=== PATIENT | female | born 1950 | race Hispanic/Latino ===

== ENCOUNTER → 2018-12-29 | Outpatient (CLI) | payer MEDICARE ==
[~2018-12-29] MED LIST: REGADENOSON 0.4 MG/5 ML PF SYG IVP SCH
== END | disposition home or self-care (01) ==
LOC: SHCH 08:00
PROVIDERS: ATTEND Internal Medicine Cardiovascular Disease
DX: R07.9 Chest pain, unspecified (principal); R06.02 Shortness of breath; R10.9 Unspecified abdominal pain
CPT/HCPCS: 78452; 93017; 96374; A9500 ×2

== ENCOUNTER → 2019-08-12 | Outpatient (CLI) | payer MEDICARE ==
[~2019-08-12] MED LIST changes: +GADODIAMIDE 10 MMOL/20 ML VIAL IV ONE; -REGADENOSON 0.4 MG/5 ML PF SYG IVP SCH
== END | disposition home or self-care (01) ==
LOC: RAH 13:58
PROVIDERS: ATTEND Family Medicine
DX: R51 Headache (principal); R55 Syncope and collapse
CPT/HCPCS: 70553; A9579

== ENCOUNTER → 2019-09-07 | Outpatient (CLI) | payer MEDICARE | END | disposition home or self-care (01) | LOC: RAH 13:44 | PROVIDERS: ATTEND Family Medicine | DX: E23.6 Other disorders of pituitary gland (principal); G31.89 Other specified degenerative diseases of nervous system; R90.82 White matter disease, unspecified; J34.89 Other specified disorders of nose and nasal sinuses | CPT/HCPCS: 70553; A9579 ==

== ENCOUNTER 2020-05-24 13:49 | Observation (INO) | payer MEDICARE ==
[~2020-05-24] VITALS: Ht 162.6 cm; Wt 82.8 kg
[2020-05-24 14:40] LABS: BASOPHILS % (AUTO) 0.4 % (0.0-5.0); EOSINOPHILS % (AUTO) 1.8 % (0.0-8.0); HEMATOCRIT 31.8 % (36-48); LYMPHOCYTES % (AUTO) 32.5 % (21.0-51.0); MEAN CORPUSCULAR HEMOGLOBIN 27.8 pg (27.0-33.0); MEAN CORPUSCULAR HGB CONC 32.7 g/dL (32.0-36.0); MONOCYTES % (AUTO) 8.3 % (3.0-13.0); NEUTROPHILS % (AUTO) 56.3 % (40.0-77.0); PLATELET COUNT (AUTO) 212 K/uL (130-400); RED BLOOD CELL COUNT(AUTO) 3.74 MIL/uL (4.00-5.50); RED CELL DISTRIBUTION WIDTH 14.6 % (11.0-15.5); WHITE BLOOD COUNT (AUTO) 8.6 K/uL (4.8-10.8)
[2020-05-24 14:52] LABS: CREATININE 1.9 mg/dL (0.5-1.5); POTASSIUM 4.9 mmol/L (3.5-5.1)
[2020-05-24 14:56] LABS: INR 1.01 (0.85-1.15); PARTIAL THROMBOPLASTIN TIME 27.3 SEC (26.3-35.5); PROTHROMBIN TIME 10.9 SEC (9.6-11.6)
[2020-05-24 14:57] LABS: ALBUMIN 3.4 g/dL (3.5-5.0); BILIRUBIN,TOTAL 0.4 mg/dL (0.2-1.0); TOTAL PROTEIN, SERUM 7.7 g/dL (6.0-8.3)
[2020-05-24] MEDS ORDERED: SODIUM CHLORIDE 0.9% 1000ML 1,000 ML IV ONE (15:04)
[2020-05-24] MEDS ORDERED: BUPIVACAINE/PF 0.25% 30ML VIAL IJ ONE (15:40)
[2020-05-24] MEDS ORDERED: CEFAZOLIN SODIUM 1 GM VIAL ONE (15:40)
[2020-05-24] MEDS ORDERED: MIDAZOLAM HCL 1 MG/ML 2ML VIAL ONE ×2 (15:41→16:48)
[2020-05-24] MEDS ORDERED: LIDOCAINE HCL 1% MDV 50ML VIAL ONE (15:41)
[2020-05-24] MEDS ORDERED: MEPERIDINE-PF 25 MG/ML SYG ONE ×2 (15:41→16:48)
[2020-05-24] MEDS ORDERED: OCTYL 2-CYANOACRYLATE 1 EACH TP ONE ×2 (17:08→17:25)
[2020-05-24] MEDS ORDERED: ACETAMINOPHEN-CODEINE 300/30MG TAB PO PRN ×2 (17:45)
[2020-05-24] MEDS ORDERED: NITROGLYCERIN 0.4 MG SL TAB SL PRN (17:45)
[2020-05-24] MEDS ORDERED: TEMAZEPAM 30 MG CAP PO PRN (17:45)
[2020-05-24] MEDS ORDERED: ONDANSETRON HCL 4 MG/2 ML VIAL IV PRN (17:45)
[2020-05-24] MEDS ORDERED: SODIUM CHLORIDE 0.9% 1000ML 1,000 ML IV SCH (17:45)
[2020-05-24 18:30] VITALS: BP 142/55
[2020-05-24 19:00] VITALS: BP 146/55
[2020-05-24 19:52] VITALS: BP 136/64
[2020-05-24] MEDS: METOPROLOL SUCCINATE 50 MG TAB.SR.24H PO SCH (20:21)
[2020-05-24] MEDS: LOSARTAN 50 MG TABLET PO SCH (20:21)
[2020-05-24] MEDS: LINAGLIPTIN 5 MG TABLET PO SCH (20:21)
[2020-05-24] MEDS: METFORMIN HCL 500 MG TAB.SR.24H PO SCH (20:29)
[2020-05-25] VITALS: BP 154/61
[2020-05-25 03:52] VITALS: BP 154/64
[2020-05-25 04:48] LABS: HEMATOCRIT 28.7 % (36-48); MEAN CORPUSCULAR HEMOGLOBIN 27.1 pg (27.0-33.0); MEAN CORPUSCULAR HGB CONC 32.1 g/dL (32.0-36.0); MEAN CORPUSCULAR VOLUME 84.7 fL (79-99); RED BLOOD CELL COUNT(AUTO) 3.39 MIL/uL (4.00-5.50); RED CELL DISTRIBUTION WIDTH 14.6 % (11.0-15.5); WHITE BLOOD COUNT (AUTO) 8.8 K/uL (4.8-10.8)
[2020-05-25 05:25] LABS: BILIRUBIN,TOTAL 0.3 mg/dL (0.2-1.0); CREATININE 1.9 mg/dL (0.5-1.5); TOTAL PROTEIN, SERUM 6.8 g/dL (6.0-8.3)
[2020-05-25] MEDS ORDERED: CEFAZOLIN SODIUM 1 GM VIAL IVP ONE (06:00)
[2020-05-25 08:00] VITALS: BP 175/67
--- NOTE | 2020-05-25 08:11 | NUR ---
MEDICATED FOR C/O OF NAUSEA, HAD A SMALL EMESIS, CLEAR FLUID
--- NOTE | 2020-05-25 08:30 | NUR ---
JUAN DAVID CHEN IN TO SEE. CAN BE DISCHARGED TODAY. INST. ON ARM ACTIVITY GIVEN.
[2020-05-25] MEDS ORDERED: FERR324T4 PO (08:55)
[2020-05-25] MEDS ORDERED: ASPI-1005 PO (08:55)
[2020-05-25] MEDS ORDERED: LINA5TAB PO (08:55)
[2020-05-25] MEDS ORDERED: Nitroglycerin 0.4MG Sl Tab SL (08:55)
[2020-05-25] MEDS ORDERED: METF500T3 PO (08:55)
[2020-05-25] MEDS ORDERED: LOSA50TA2 PO (08:55)
[2020-05-25] MEDS ORDERED: ATOR20TA65 PO (08:55)
[2020-05-25] MEDS ORDERED: FURO20TA6 PO (08:55)
[2020-05-25] MEDS ORDERED: GABA100C PO (08:55)
[2020-05-25] MEDS: METOPROLOL SUCCINATE 50 MG TAB.SR.24H PO SCH ×2 (09:00→14:05)
[2020-05-25] MEDS ORDERED: FERROUS SULFATE 325 MG TABLET.DR PO SCH (09:00)
[2020-05-25] MEDS ORDERED: ASPIRIN 81MG TAB.CHEW PO SCH (09:00)
[2020-05-25] MEDS ORDERED: GABAPENTIN 100 MG CAPSULE PO SCH (09:00)
[2020-05-25] MEDS ORDERED: FUROSEMIDE 20 MG TABLET PO SCH (09:00)
[2020-05-25] MEDS ORDERED: AMLODIPINE BESYLATE 5 MG TAB PO SCH (09:00)
[2020-05-25] MEDS ORDERED: ATORVASTATIN CALCIUM 20 MG TABLET PO SCH (09:00)
[2020-05-25] MEDS: METFORMIN HCL 500 MG TAB.SR.24H PO SCH (09:05)
[2020-05-25] MEDS: LINAGLIPTIN 5 MG TABLET PO SCH (09:06)
[2020-05-25] MEDS: LOSARTAN 50 MG TABLET PO SCH (09:06)
--- NOTE | 2020-05-25 09:09 | NUR ---
REFUSED TOPROL, STATES HAS BEEN STOPPED BY HER HASN'T TAKEN IT FOR A WHILE.
[2020-05-25 12:00] VITALS: BP 184/68
--- NOTE | 2020-05-25 13:54 | NUR ---
PAGED JUAN DAVID RE: HIGH BP. STATES TO GIVE A CLONIDINE 0.1 PO NOW AND TO RESTART TOPROL.
[2020-05-25] MEDS ORDERED: CLONIDINE HCL 0.1 MG TABLET PO SCH (14:00)
--- NOTE | 2020-05-25 14:43 | NUR ---
PREPARED FOR DISCHARGE, WILL CHECK BP AGAIN IN APPROX. 30MINUTES . CLONIDINE 0.1MG PO GIVEN NOW.
--- NOTE | 2020-05-25 15:48 | NUR ---
[id number] PATIENT SIGNED SALDANA LETTER, I FAXED SALDANA LETTER TO [phone] AND PLACED IN CHART UNDER CONSENT TAB.
[2020-05-25 16:00] VITALS: BP 184/68
[2020-05-25 16:13] VITALS: BP 184/68
--- NOTE | 2020-05-25 18:00 | NUR ---
DISCHARGED USING TEACH BACK,VERBALIZES UNDERSTANDING OF ALL INST. GIVEN. HAS HOME HEALTH AND THEY MONITOR HER BP CLOSELY. WILL FOLLOW UP WITH APPT. SCHEDULED . INST. TO RETURN TO ER IF ANY PROBLEMS DEVELOP. DC INST. ALSO GIVEN TO DAUGHTER VIA PHONE, PER PT. STATES DAUGHTER IS A NURSE AND HELPS HER.
== END 2020-05-25 18:30 | disposition home or self-care (01) ==
LOC: EDH 13:49 → EDHIP 14:26 → DAHIP 18:34
PROVIDERS: ADMIT Internal Medicine; ATTEND Internal Medicine
DX: I49.5 Sick sinus syndrome (principal); I12.9 Hypertensive chronic kidney disease with stage 1 through stage 4 chronic kidney disease, or unspecified chronic kidney disease; E11.22 Type 2 diabetes mellitus with diabetic chronic kidney disease; N18.9 Chronic kidney disease, unspecified; K21.9 Gastro-esophageal reflux disease without esophagitis; E78.5 Hyperlipidemia, unspecified; I25.10 Atherosclerotic heart disease of native coronary artery without angina pectoris; Z86.19 Personal history of other infectious and parasitic diseases; Z95.0 Presence of cardiac pacemaker
CPT/HCPCS: 33208; 36415 ×2; 71046; 80053 ×2; 82948; 85025; 85027; 85610; 85730; 93005; 96374; 96375; 99285; C1785; C1894; C1898 ×2; G0378 ×11; J0690 ×2; J2175 ×2; J2250 ×2; J2405; J3490 ×2; J7030; 99156; 99157

== ENCOUNTER → 2020-09-27 | Outpatient (CLI) | payer MEDICARE ==
[~2020-09-27] MED LIST changes: +ASPI-1005 PO; +ATOR20TA65 PO; +FERR324T4 PO; +FURO20TA6 PO; +GABA100C PO; -GADODIAMIDE 10 MMOL/20 ML VIAL IV ONE; +LINA5TAB PO; +LOSA50TA2 PO; +METF500T3 PO; +Nitroglycerin 0.4MG Sl Tab SL; +REGADENOSON 0.4 MG/5 ML PF SYG IVP SCH
== END | disposition home or self-care (01) ==
LOC: SHCH 08:13
PROVIDERS: ATTEND Internal Medicine Cardiovascular Disease
DX: I25.89 Other forms of chronic ischemic heart disease (principal); I10 Essential (primary) hypertension
CPT/HCPCS: 78452; 93017; 96374; A9500 ×2; J2785

== ENCOUNTER 2021-10-25 08:50 | Day surgery (SDC) | payer MEDICARE ==
[2021-10-23 16:31] LABS: BASOPHILS % (AUTO) 0.3 % (0.0-5.0); EOSINOPHILS % (AUTO) 1.9 % (0.0-8.0); HEMATOCRIT 34.7 % (36-48); LYMPHOCYTES % (AUTO) 29.7 % (21.0-51.0); MEAN CORPUSCULAR HEMOGLOBIN 27.9 pg (27.0-33.0); MEAN CORPUSCULAR HGB CONC 32.9 g/dL (32.0-36.0); MEAN CORPUSCULAR VOLUME 84.8 fL (79-99); MONOCYTES % (AUTO) 6.6 % (3.0-13.0); PLATELET COUNT (AUTO) 180 K/uL (130-400); RED BLOOD CELL COUNT(AUTO) 4.09 MIL/uL (4.00-5.50); RED CELL DISTRIBUTION WIDTH 13.9 % (11.0-15.5); WHITE BLOOD COUNT (AUTO) 7.7 K/uL (4.8-10.8)
[2021-10-23 16:39] LABS: CREATININE 2.9 mg/dL (0.5-1.5); POTASSIUM 4.8 mmol/L (3.5-5.1)
[2021-10-23 16:41] LABS: INR 1.07 (0.85-1.15); PROTHROMBIN TIME 11.6 SEC (9.6-11.6)
[2021-10-23 16:42] LABS: PARTIAL THROMBOPLASTIN TIME 29.9 SEC (26.3-35.5)
[2021-10-23 16:58] LABS: B-TYPE NATRIURETIC PEPTIDE 51 pg/mL (0-100)
[2021-10-24 14:57] VITALS: BP 149/74
[~2021-10-25] VITALS: Ht 149.9 cm; Wt 79.3 kg
[2021-10-25] VITALS (10 sets, daily range): BP systolic 119–146; BP diastolic 59–75
[~2021-10-25 08:50] MED LIST changes: +0.9%NACL 1000ML 1,000 ML IV SCH; +ESOM40CA54 PO; -FERR324T4 PO; -FURO20TA6 PO; +FURO40TA5 PO; +GABA-529 PO; -GABA100C PO; +HYDR-4153 PO; +ISOS60TA77 PO; -LINA5TAB PO; -LOSA50TA2 PO; -METF500T3 PO; +METO100T14 PO; -Nitroglycerin 0.4MG Sl Tab SL; +PANT40GR PO; -REGADENOSON 0.4 MG/5 ML PF SYG IVP SCH; +SITA50TA PO
[2021-10-25] MEDS ORDERED: IOHEXOL 350 MG/ML 100ML INFUS..BTL IV ONE (13:09)
[2021-10-25] MEDS ORDERED: HEPARIN 10,000 UNIT/10ML (1,000 UNIT/ML) VIAL ONE (13:09)
[2021-10-25] MEDS ORDERED: IOHEXOL-350 50ML VIAL IV ONE (13:09)
[2021-10-25] MEDS ORDERED: LIDOCAINE HCL 400MG/20ML VIAL ONE (13:09)
[2021-10-25] MEDS ORDERED: NITROGLYCERIN 2 MG VIAL IV ONE (13:09)
[2021-10-25] MEDS ORDERED: HYDRALAZINE 20MG/ML VIAL ONE (13:32)
[2021-10-25] MEDS ORDERED: DEXTROSE 50%-WATER 50 ML DISP.SYRIN IV PRN (14:00)
[2021-10-25] MEDS ORDERED: GLUCAGON 1MG KIT 1 MG ML IM PRN (14:00)
[2021-10-25] MEDS ORDERED: ALPRAZOLAM 0.5 MG TABLET ONE (14:41)
[2021-10-25] MEDS ORDERED: ALPRAZOLAM 0.25 MG TABLET PO SCH (15:00)
== END 2021-10-25 18:10 | disposition home or self-care (01) ==
LOC: DAH 08:50
PROVIDERS: ATTEND Internal Medicine Cardiovascular Disease
DX: I20.0 Unstable angina (principal); E11.22 Type 2 diabetes mellitus with diabetic chronic kidney disease; I12.9 Hypertensive chronic kidney disease with stage 1 through stage 4 chronic kidney disease, or unspecified chronic kidney disease; N18.4 Chronic kidney disease, stage 4 (severe); E11.21 Type 2 diabetes mellitus with diabetic nephropathy; I44.0 Atrioventricular block, first degree; E78.5 Hyperlipidemia, unspecified; Z79.899 Other long term (current) drug therapy; Z79.01 Long term (current) use of anticoagulants; Z79.82 Long term (current) use of aspirin; Z95.0 Presence of cardiac pacemaker; Z83.3 Family history of diabetes mellitus; Z82.49 Family history of ischemic heart disease and other diseases of the circulatory system
CPT/HCPCS: 36415; 71045; 80048; 82948 ×2; 83880; 85025; 85610; 85730; 93005; 93458; A4215; A4216; A4221; A4222; A4223 ×3; A4606; A4663; C1760; C1894; J0360; J1644; J3490 ×2; Q9965; Q9967 ×2; 96360